=== PATIENT | male | born 1970 | race Caucasian/White ===

== ENCOUNTER 2016-05-17 11:58 | Day surgery (SDC) | payer BC ==
--- NOTE | ~2016-05-17 | OP ---
Record Of Operation [facility] [address] [place]. [address] NAME: JOSH PIERCE : 72 STATUS : [facility]#: [id number] AGE: 45 ADM/REG DATE : 05/17/16 MR#: [id number] REPORT SERV DATE: 05/18/16 DICTATED BY: BLAIR TRONCOSO JR. DATE: 05/17/16 REPORT STATUS : Draft TRANSCRIBED BY: [email or web address] DATE: 05/17/16 DATE OF PROCEDURE: 05/17/2016 SURGEON: Blair Troncoso M.D. PREOPERATIVE DIAGNOSIS: Right ureteral stone. POSTOPERATIVE DIAGNOSIS: Right ureteral stone. PROCEDURE PERFORMED: Cystoscopy, right retrograde pyelogram, dilation of right ureteral orifice, right ureteroscopy with laser ablation of right ureteral stone with removal of fragments, double-J stent placement. COMPLICATIONS: None. CONSULTATIONS: None. ANESTHESIA: General with an endotracheal tube. SPECIMENS: Right ureteral stone fragments. DRAINS: 6 x 26 cm double-J stent with string. INDICATION: Mr. Pierce is a 45-year-old gentleman, who I saw in the office today with intractable pain from an obstructing 7 mm UPJ stone on the right. He comes for stone manipulation and laser ablation of the stone with double-J stent placement. PROCEDURE IN DETAIL: After the patient was identified and proper informed consent was obtained, he was taken to the operating room. General anesthesia was performed without complication using an endotracheal tube. He was then prepped and draped in the normal sterile fashion in the lithotomy position. Cystoscopic examination of the urethra and bladder were performed. He was found to have a normal urethra, normal prostatic urethra, and normal bladder without tumor, diverticula, or stone. Right ureteral orifice was cannulated using a 5-Samoan open-ended catheter. Retrograde pyelogram was performed, which revealed the stone as a filling defect at the UPJ 7 mm in size. A guidewire was advanced through the open-ended catheter up, passed the stone into the renal pelvis and the ureteral access sheath, 14-Samoan in diameter was then placed into the distal ureter. Flexible ureteroscopy up to the level of the stone showed the stone to have migrated up to the mid pole calyx. The stone was visualized, fragmented using dusting settings with a 200 micron Holmium laser fiber. The largest of the pieces was removed and was sent for analysis less than 1 mm in size. I then reinspected the ureter. There was no injury noted. The sheath and ureteroscope were removed. A 6 x 26 cm double-J stent was deployed without difficulties with a nice curl in both the bladder and the kidney. The string was left in place for removal on Tuesday. I will see the patient back in the office in one month for stone analysis results. Record Of Operation [address] [place]. [address] NAME: JOSH PIERCE : 72 STATUS : [facility] PAT#: [id number] AGE: 45 ADM/REG DATE : 05/17/16 MR#: [id number] REPORT SERV DATE: 05/18/16 DICTATED BY: BLAIR TRONCOSO JR. DATE: 05/17/16 REPORT STATUS : Draft TRANSCRIBED BY: ANSELMO DATE: 05/17/16 KATIUSKA/ANSELMO Blair Troncoso Jr., M.D. / [id number] CC: Diana Garcia Jr., M.D.
[~2016-05-17 11:58] MED LIST: FISH-EPA1000 MG PO
[2016-05-24 12:52] LABS: SOURCE OF STONE Right Kidney (()); STONE COMPOSITION TWO DNR (())
== END 2016-05-17 19:58 | disposition home or self-care (01) ==
LOC: SDC 11:58
PROVIDERS: Urology
PROC: 0T768DZ Dilation of Right Ureter with Intraluminal Device, Via Natural or Artificial Opening Endoscopic (ICD-10-PCS; 2016-05-17)
PROC: 0TF68ZZ Fragmentation in Right Ureter, Via Natural or Artificial Opening Endoscopic (ICD-10-PCS; principal; 2016-05-17 16:15)
DX: N20.1 Calculus of ureter (principal); I10 Essential (primary) hypertension; Z87.442 Personal history of urinary calculi
CPT/HCPCS: 74420; 82365; C1758; C2617; J2175; J2250; J2405; J2710; J3010; Q9967